=== PATIENT | male | born 1965 | race Two or more races ===

== ENCOUNTER → 2016-12-18 | Outpatient (CLI) | payer BC, MEDICAID | END | disposition home or self-care (01) | LOC: RADPV 09:14 | PROVIDERS: ATTEND Internal Medicine Cardiovascular Disease | DX: I42.9 Cardiomyopathy, unspecified (principal); I44.7 Left bundle-branch block, unspecified; I51.7 Cardiomegaly | CPT/HCPCS: 93306 ==